=== PATIENT | male | born 1980 | race Caucasian/White ===

== ENCOUNTER 2020-04-11 09:30 | Outpatient (RCR) | payer OTHER, SELFPAY ==
--- NOTE | 2020-02-05 16:49 | HP.OTEVAL ---
Patient's Visit Information JERE JONES is a 39 year old M, referred to Occupational Therapy by SONU ALBERTO, with a diagnosis of right flexor tendon repair. Date of Evaluation: 01/29/20 Occupational Therapist: Ekta Pruett, OTR/Cristiana, CHT - Subjective This 39 year old male was seen for OT eval with dx of flexor tendon laceration. pt lacerated hand with knife while at work. DOI 01/21/20 with DOS 01/22/20. pt arrives with orthosis on right hand. pt is right handed. 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 - Pain right hand 2 Pain Intensity Range: 0, 2 - ROM MP: right 35 left 0/85 PIP: right 35 left 0/90 DIP: right 20 left 0/ 50 - Strength Functional Support Analyst: right NT left 100# Lateral Pinch: right NT left 16# Tripod Pinch: right NT left 18# Strength Comments: will test right hand at later date - Sensation Sensation Comments: denies - Quick DASH-Disab of Arm,Shoulder& Hand Quick DASH Score: 71.6650 - Goals Goal:100% adherence to protocol: Yes Comment: flexor tendon protocol Goal:Daily scar massage when approriate: Yes Goal:ROM equal to unaffected hand: Yes Goal:Functional Support Analyst/Pinch strength at least 75% of unaffected hand: Yes Goal:No pain with affected hand use: Yes Goal:Full use of affected hand in daily activities including: Yes Goal:Decrease scar hypersensitivity: Yes - Rehabilitation General Assessment: Pt arrives to OT 1 weeks s/p from right LF flexor tendon repair- pt arrives with custom orthosis on with need of min. adj to increase comfort. Pt currently limited with ADLs and ADLs at this time while newly repaired structure is healing. Pt demo need for skilled OT services 1-2 x week for [address] any anguiano protocol and return pt to PLOF. Rehabilitation Potential: Good - Anticipated Interventions Early Active Motion, A/AAROM/PROM, Strengthening, Scar Care, Desensitization, Modalities, Orthoses, Fine Motor Coord/Harrison - Visit Plan Frequency: 1-2x /Week Duration: 2 Months General Plan: 4-5 dyas post-surgery- Vladislav. dorsal blocking orthosis apply light dressing to involved digitis. wrist 0* , MP's 45* flexion, IPs at 0* (do not force DIP extension due to possible tendon repair). Initiate full PROM for flexion in orthosis of digits a isolated passive DIP flexion, isolater passive PIP flexion, Isolated passive MP flexion and composite passive flexion perform 6x a day. Initiate short arch AROM flexion of digits within orthosis (MP 45*, PIP 45*, DIP 45*) have patient place uninvolved hand (fingers small,ring,long,index) perpendicular to involved hand at the distal palmar crease index up, small finger at DPC to act as bloc, have pt actively flex the involved hand to the index,thaen straighten to the orthosis perform 10 repetitions 6x a day. Instruct pt to remove orthosis allow pt to actively extend fingers as able to comfort with the wrist in neutral. perform 10 repetitions 6x a day, DO NOT ALLOW WRIST EXTENSION. ed- pt on joana reduction jose. Flexor tendon precautions. orthosis is worn full decator operator except controlled exercises. maintaining ROM of the non-involved elbow/shoulder. How to perform self-care activities one handed wihle protection tendon repair. 2nd post op visit- cont the above exercises-. initiate protected synergistic wrist motion SWM ([employer])- active wrist flexion with fingers relaxed, active wrist extension to only 20* extension, with fingers blocked from going into extension (protected flexion) DO NOT ALLOW ACTIVE WRIST AND FINGER EXTENSION. DO NOT ALLOW PROM WRIST. perform in clinic only 10 reps. 3rd post op. cont all above ex. see protocol if extensor lag develops. 2 weeks post-op. cont PROM for flexion. cont protected passive IP extension. cont isolated FDS glide in orthosis. continue protected SWM in clinic only. increase short arc active motion in orthosis (no thre fingers and have pt flex to indes and extend to the orthosis-perform 10 reps 6x a day. cont. to have pt remove orthosis allow pt to actively extend fingers as able to comfort with the wrist in Neutral (*do not allow wrist ext*). cont edmea mtg. cont ROM of elbow shoulder. cont orthosis full-time. 3rd week post op. cont PROM. cont protected passive IP ext. cont isolated FDS glide in orthosis. cont protected SWM. INcrease Short arc active motion in orhtosis two fingers. cont out of orthosis and extend fingers as able to comfort with wrist in neutral. 4th week post-op. cont PROM. cont protected passive IP ext. cont isolated FDS glide in orthosis. cont protected SWM. INcrease Short arc active motion in orhtosis 1 fingers. cont out of orthosis and extend fingers as able to comfort with wrist in neutral. see protocol on file for more details on protocol. TEXT: Thank you for the opportunity to evaluate your patient. For Medicare and Medicare HMO plans, please review the plan of care and approve it. It will need to be FAXED BACK to us at [phone] for Medicare purposes. Please let me know if there are questions or concerns regarding this plan of care. Physician Signature: Date:
--- NOTE | 2020-02-29 10:03 | OTREVAL_ITS ---
SONU ALBERTO, It has been my pleasure to treat JERE JONES over the last 6 visits for right flexor tendon repair. Please see the progress note below for an update on the occupational therapy plan of care! Subjective: pt arrives at 5 weeks 2 days s/p pt will be 6 weeks on 2020. last seen - reports he has been performing his exercises- still reports tender at incision but continues with scar mtg - pt is asking about strengthening- Objective/Function: right LF MCP 80. right LF PIP -20/65. right LF DIP -10/35. pt reports his incision cont. to be sore but is performing his scar mtg-. therapist has pt using elastomer at night for scar - and pt demo understanding of protocol and performance of ex. - therapist ed. pt on preventing MCP hyper ext. with attempts to straighten his LF- pt demo understanding and would work on ext more. Plan Frequency: 1-2x /Week Duration: 2 Months Plan: will cont. to follow protocol unless otherwise specified by Goals - Goals Patient Goals: Use Hand/Wrist/Arm Normally Again Goal:100% adherence to protocol: Yes Goal:Daily scar massage when approriate: Yes Goal:ROM equal to unaffected hand: Yes Goal:Educational Technology Coordinator/Pinch strength at least 75% of unaffected hand: Yes Goal:No pain with affected hand use: Yes Goal:Full use of affected hand in daily activities including: Yes Goal:Decrease scar hypersensitivity: Yes Anticipated Interventions Anticipated Interventions: Early Active Motion, A/AAROM/PROM, Strengthening, Scar Care, Desensitization, Modalities, Orthoses, Fine Motor Coord/Harrison Please do not hesitate to contact me at [phone] by phone or if you have questions or concerns regarding this new plan of care! Sincerely, Ekta Pruett, OTR/L, CHT
--- NOTE | 2020-04-11 09:37 | HP.OTREVAL ---
SONU ALBERTO, It has been my pleasure to treat JERE JONES over the last 12 visits for right flexor tendon repair. Please see the progress note below for an update on the occupational therapy plan of care! Subjective: Pt arrives to session at 11 weeks s/p from right LF flexor tendon repair - pt states he feels the strenght is returning and scar sensitivity stop him about 10% of the time. pt reports ind. 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 right lateral pinch 22#. right tripod pinch 20#. right MCP 0/90. right PIP -10/75. right DIP 0/35. pt demo with hypertrophic scar of LF this could be limiting pts DIP flex. this limitation is not interfering with pts functional use of right hand. Therapy has advised pt to cont with scar mtg. and PROM along with Reverse blocking to gain PIP ext. Pt demo understanding. Plan Plan: pt to return to drKatelyn for possible D/C Goals - Goals Patient Goals: Use Hand/Wrist/Arm Normally Again Goal:100% adherence to protocol: Yes Goal:Daily scar massage when approriate: Yes Goal:ROM equal to unaffected hand: Yes Goal:Wrecking Crane Engine Operator/Pinch strength at least 75% of unaffected hand: Yes Goal:No pain with affected hand use: Yes Goal:Full use of affected hand in daily activities including: Yes Goal:Decrease scar hypersensitivity: Yes Anticipated Interventions Anticipated Interventions: Early Active Motion, A/AAROM/PROM, Strengthening, Scar Care, Desensitization, Modalities, Orthoses, Fine Motor Coord/Harrison Please do not hesitate to contact me at [phone] by phone or if you have questions or concerns regarding this new plan of care! Sincerely, Ekta Pruett, OTR/L, CHT
== END 2020-04-11 19:00 | disposition home or self-care (01) ==
LOC: OT 09:30
PROVIDERS: PCP Family Medicine
DX: S66.126D Laceration of flexor muscle, fascia and tendon of right little finger at wrist and hand level, subsequent encounter (principal); W26.0XXD Contact with knife, subsequent encounter
CPT/HCPCS: 97035; 97110; 97140; 97166; 97530